=== PATIENT | female | born 1990 | race Hispanic/Latino ===

== ENCOUNTER → 2018-02-15 | Outpatient (CLI) | payer OTHER | LOC: EEVIPCON 14:44 → RAH 14:44 | PROVIDERS: ATTEND Internal Medicine | DX: S82.892A Other fracture of left lower leg, initial encounter for closed fracture (principal); X58.XXXA Exposure to other specified factors, initial encounter; Y93.89 Activity, other specified; Y92.89 Other specified places as the place of occurrence of the external cause; Y99.8 Other external cause status | CPT/HCPCS: 73610 ==